=== PATIENT | male | born 1990 | race Caucasian/White ===

== ENCOUNTER → 2016-12-03 | Outpatient (CLI) | payer BC, OTHER ==
[~2016-12-03] MED LIST: MULT-506 PO
== END | disposition home or self-care (01) ==
LOC: C.RDSM 15:25
PROVIDERS: ATTEND Physical Medicine & Rehabilitation Sports Medicine
DX: S89.92XA Unspecified injury of left lower leg, initial encounter (principal); X58.XXXA Exposure to other specified factors, initial encounter